=== PATIENT | male | born 1965 | race Caucasian/White ===

== ENCOUNTER 2018-04-17 05:28 | Inpatient (IN) | payer MEDICAID, OTHER ==
[~2018-04-17] VITALS: Ht 175.3 cm; Wt 68.2 kg
[~2018-04-17 05:28] MED LIST: COU5T PO; LOP25T PO; REM15T PO
[2018-04-17] MEDS ORDERED: morphine 4 MG/ML inj SYRINge IV ONE (06:00)
[2018-04-17] MEDS: K and/or MAG REPLACEMENT MC SCH (08:00)
[2018-04-17] MEDS ORDERED: HYDROcodone/acetaminophen 5mg/325mg tablet PO PRN (08:00)
[2018-04-17] MEDS ORDERED: bisacodyl 10mg suppository rectal RC PRN (08:00)
[2018-04-17] MEDS ORDERED: morphine 2 MG/ML inj. syringe IV PRN (08:00)
[2018-04-17] MEDS ORDERED: ondansetron/PF 4mg/2ml inj IV PRN (08:00)
[2018-04-17] MEDS ORDERED: magnesium 4gm in 100ml NS 100 ML IV PRN (08:00)
[2018-04-17] MEDS ORDERED: magnesium hydroxide 30ml (MOM) UD suspension PO PRN (08:00)
[2018-04-17] MEDS ORDERED: acetaminophen 325mg tablet PO PRN (08:00)
[2018-04-17] MEDS ORDERED: potassium Cl 20 mEq SR tablet PO PRN ×2 (08:00)
[2018-04-17] MEDS ORDERED: potassium Cl 40MEQ/NS 500ml 500 ML IV PRN ×2 (08:00)
[2018-04-17] MEDS ORDERED: magnesium Cl slow-release 64mg tablet PO PRN (08:00)
[2018-04-17] MEDS ORDERED: linezolid 600mg/300ml PREMIX 300 ML IV SCH (08:05)
[2018-04-17] MEDS: piperacillin/tazo 4.5gm/100ml 100 ML IV SCH ×2 (08:34→16:27)
[2018-04-17] MEDS: enoxaparin 40mg/0.4ml syringe SUBCUT SCH (08:38)
[2018-04-17] MEDS: docusate sod 100mg capsule PO SCH ×2 (08:38→20:00)
[2018-04-17] MEDS: normal saline 1000ml 1,000 ML IV SCH ×3 (08:44→20:52)
[2018-04-17 10:00] VITALS: BP 125/72
[2018-04-17] MEDS ORDERED: UNABLE TO OBTAIN (10:23)
[2018-04-17] MEDS: morphine 2 MG/ML inj. syringe IV PRN ×2 (12:04→16:42)
[2018-04-17] MEDS: albuterol 2.5 MG/3 ML nebule NEB PRN (14:29)
[2018-04-17 19:30] VITALS: BP 125/74
[2018-04-17] MEDS: linezolid 600mg tablet PO SCH (21:57)
[2018-04-17] MEDS: HYDROcodone/acetaminophen 10/325mg tab PO PRN (21:58)
[2018-04-17] MEDS: thiamine 100mg tablet PO SCH (21:58)
[2018-04-18] VITALS: BP 141/68
[2018-04-18] MEDS: piperacillin/tazo 4.5gm/100ml 100 ML IV SCH ×4 (00:33→23:34)
[2018-04-18 05:25] LABS: BASOPHILS % (AUTO) 0.5 % (0-1); EOSINOPHILS # (AUTO) 0.2 X10'3 (0-0.9); EOSINOPHILS % (AUTO) 1.8 % (0-6); HEMATOCRIT 31.5 % (42.0-52.0); HEMOGLOBIN 10.4 g/dl (14.0-17.9); LYMPHOCYTES # (AUTO) 1.5 X10'3 (1.1-4.8); LYMPHOCYTES % (AUTO) 18.2 % (21-51); MEAN CORPUSCULAR HEMOGLOBIN 29.6 PG (27.0-31.0); MEAN CORPUSCULAR HGB CONC 33.2 % (33.0-36.5); MEAN CORPUSCULAR VOLUME 89.3 FL (78-98); MONOCYTES # (AUTO) 1.3 X10'3 (0-0.9); MONOCYTES % (AUTO) 15.8 % (2-12); NEUTROPHILS # (AUTO) 5.2 X10'3 (1.8-7.7); NEUTROPHILS % (AUTO) 63.7 % (42-75); PLATELET COUNT 364 X10'3 (140-440); RED BLOOD COUNT 3.52 X10'6 (4.70-6.10); RED CELL DISTRIBUTION WIDTH 15.5 % (11.5-14.5); WHITE BLOOD COUNT 8.2 X10'3 (4.5-11.0)
[2018-04-18 05:43] LABS: ALANINE AMINOTRANSFERASE 12 U/L (12-78); ALBUMIN 2.4 G/DL (3.4-5.0); ALBUMIN/GLOBULIN RATIO 0.6 (1.1-1.5); ALKALINE PHOSPHATASE 94 IU/L (46-116); ANION GAP 7 (8-16); ASPARTATE AMINO TRANSFERASE 10 U/L (10-37); BILIRUBIN,TOTAL 0.3 MG/DL (0.1-1.0); BLOOD UREA NITROGEN 11 MG/DL (7-18); BUN/CREATININE RATIO 12.6 (5.4-32.0); CALCIUM 8.7 MG/DL (8.5-10.1); CHLORIDE 99 MMOL/L (99-107); CREATININE 0.87 MG/DL (0.60-1.10); GLUCOSE 102 MG/DL (70-104); MAGNESIUM 1.7 MG/DL (1.5-2.4); POTASSIUM 4.2 MMOL/L (3.5-5.1); SODIUM 133 MMOL/L (135-145); TOTAL PROTEIN 6.7 G/DL (6.4-8.2); eGFR > 90 ML/MIN
[2018-04-18 07:30] VITALS: BP 141/89
[2018-04-18] MEDS: docusate sod 100mg capsule PO SCH ×2 (08:00→20:07)
[2018-04-18] MEDS: K and/or MAG REPLACEMENT MC SCH (08:00)
[2018-04-18] MEDS: folic acid 1mg tablet PO SCH (08:32)
[2018-04-18] MEDS: normal saline 1000ml 1,000 ML IV SCH ×3 (08:32→20:07)
[2018-04-18] MEDS: linezolid 600mg tablet PO SCH ×2 (08:33→20:07)
[2018-04-18] MEDS: thiamine 100mg tablet PO SCH ×2 (08:33→20:07)
[2018-04-18] MEDS: enoxaparin 40mg/0.4ml syringe SUBCUT SCH (08:34)
[2018-04-18] MEDS: morphine 2 MG/ML inj. syringe IV PRN ×2 (09:50→15:58)
[2018-04-18 11:30] VITALS: BP 130/76
[2018-04-18 18:00] VITALS: BP 140/83
[2018-04-19] VITALS: BP 140/83
[2018-04-19 05:14] LABS: BASOPHILS # (AUTO) 0.1 X10'3 (0-0.2); BASOPHILS % (AUTO) 0.8 % (0-1); EOSINOPHILS # (AUTO) 0.2 X10'3 (0-0.9); EOSINOPHILS % (AUTO) 2.1 % (0-6); HEMATOCRIT 31.1 % (42.0-52.0); HEMOGLOBIN 10.3 g/dl (14.0-17.9); LYMPHOCYTES # (AUTO) 1.3 X10'3 (1.1-4.8); LYMPHOCYTES % (AUTO) 14.7 % (21-51); MEAN CORPUSCULAR HEMOGLOBIN 29.7 PG (27.0-31.0); MEAN CORPUSCULAR HGB CONC 33.2 % (33.0-36.5); MEAN CORPUSCULAR VOLUME 89.2 FL (78-98); MONOCYTES # (AUTO) 1.1 X10'3 (0-0.9); MONOCYTES % (AUTO) 12.9 % (2-12); NEUTROPHILS % (AUTO) 69.5 % (42-75); PLATELET COUNT 396 X10'3 (140-440); RED BLOOD COUNT 3.48 X10'6 (4.70-6.10); RED CELL DISTRIBUTION WIDTH 15.6 % (11.5-14.5); WHITE BLOOD COUNT 8.6 X10'3 (4.5-11.0)
[2018-04-19 05:24] LABS: ALANINE AMINOTRANSFERASE 11 U/L (12-78); ALBUMIN 2.4 G/DL (3.4-5.0); ALBUMIN/GLOBULIN RATIO 0.6 (1.1-1.5); ALKALINE PHOSPHATASE 94 IU/L (46-116); ANION GAP 11 (8-16); ASPARTATE AMINO TRANSFERASE 10 U/L (10-37); BILIRUBIN,TOTAL 0.2 MG/DL (0.1-1.0); BLOOD UREA NITROGEN 5 MG/DL (7-18); BUN/CREATININE RATIO 5.6 (5.4-32.0); CALCIUM 8.6 MG/DL (8.5-10.1); CHLORIDE 100 MMOL/L (99-107); CREATININE 0.89 MG/DL (0.60-1.10); GLUCOSE 96 MG/DL (70-104); MAGNESIUM 1.5 MG/DL (1.5-2.4); SODIUM 135 MMOL/L (135-145); TOTAL PROTEIN 6.6 G/DL (6.4-8.2); eGFR 90 ML/MIN
[2018-04-19] MEDS: normal saline 1000ml 1,000 ML IV SCH ×2 (06:33→22:20)
[2018-04-19 07:11] VITALS: BP 139/89
[2018-04-19] MEDS: K and/or MAG REPLACEMENT MC SCH (08:00)
[2018-04-19] MEDS: folic acid 1mg tablet PO SCH (08:45)
[2018-04-19] MEDS: thiamine 100mg tablet PO SCH ×2 (08:45→19:16)
[2018-04-19] MEDS: piperacillin/tazo 4.5gm/100ml 100 ML IV SCH ×3 (08:45→23:35)
[2018-04-19] MEDS: docusate sod 100mg capsule PO SCH ×2 (08:45→19:16)
[2018-04-19] MEDS: enoxaparin 40mg/0.4ml syringe SUBCUT SCH (08:46)
[2018-04-19 11:00] VITALS: BP 143/90
[2018-04-19] MEDS: HYDROcodone/acetaminophen 10/325mg tab PO PRN (14:36)
[2018-04-19 18:00] VITALS: BP 162/97
[2018-04-20] VITALS: BP 146/87
[2018-04-20 05:09] LABS: BASOPHILS # (AUTO) 0.1 X10'3 (0-0.2); BASOPHILS % (AUTO) 0.9 % (0-1); EOSINOPHILS # (AUTO) 0.2 X10'3 (0-0.9); EOSINOPHILS % (AUTO) 2.7 % (0-6); HEMATOCRIT 32.4 % (42.0-52.0); HEMOGLOBIN 10.8 g/dl (14.0-17.9); LYMPHOCYTES # (AUTO) 1.3 X10'3 (1.1-4.8); LYMPHOCYTES % (AUTO) 16.4 % (21-51); MEAN CORPUSCULAR HEMOGLOBIN 29.5 PG (27.0-31.0); MEAN CORPUSCULAR HGB CONC 33.2 % (33.0-36.5); MEAN CORPUSCULAR VOLUME 88.9 FL (78-98); MEAN PLATELET VOLUME 5.7 FL (7.4-10.4); MONOCYTES # (AUTO) 0.8 X10'3 (0-0.9); MONOCYTES % (AUTO) 9.5 % (2-12); NEUTROPHILS # (AUTO) 5.8 X10'3 (1.8-7.7); NEUTROPHILS % (AUTO) 70.5 % (42-75); PLATELET COUNT 471 X10'3 (140-440); RED BLOOD COUNT 3.65 X10'6 (4.70-6.10); RED CELL DISTRIBUTION WIDTH 15.1 % (11.5-14.5); WHITE BLOOD COUNT 8.2 X10'3 (4.5-11.0)
[2018-04-20 05:38] LABS: ALANINE AMINOTRANSFERASE 11 U/L (12-78); ALBUMIN 2.4 G/DL (3.4-5.0); ALBUMIN/GLOBULIN RATIO 0.6 (1.1-1.5); ALKALINE PHOSPHATASE 86 IU/L (46-116); ANION GAP 10 (8-16); ASPARTATE AMINO TRANSFERASE 9 U/L (10-37); BILIRUBIN,TOTAL 0.1 MG/DL (0.1-1.0); BLOOD UREA NITROGEN 5 MG/DL (7-18); BUN/CREATININE RATIO 5.4 (5.4-32.0); CALCIUM 8.8 MG/DL (8.5-10.1); CHLORIDE 103 MMOL/L (99-107); CREATININE 0.92 MG/DL (0.60-1.10); GLUCOSE 90 MG/DL (70-104); MAGNESIUM 1.7 MG/DL (1.5-2.4); POTASSIUM 3.9 MMOL/L (3.5-5.1); SODIUM 138 MMOL/L (135-145); TOTAL CARBON DIOXIDE 24.6 MMOL/L (24-32); TOTAL PROTEIN 6.7 G/DL (6.4-8.2); eGFR 87 ML/MIN
[2018-04-20 08:00] VITALS: BP 155/86
[2018-04-20] MEDS: K and/or MAG REPLACEMENT MC SCH (08:00)
[2018-04-20] MEDS: docusate sod 100mg capsule PO SCH ×2 (08:01→20:17)
[2018-04-20] MEDS: enoxaparin 40mg/0.4ml syringe SUBCUT SCH (08:01)
[2018-04-20] MEDS: thiamine 100mg tablet PO SCH ×2 (08:01→20:17)
[2018-04-20] MEDS: piperacillin/tazo 4.5gm/100ml 100 ML IV SCH ×3 (08:01→23:44)
[2018-04-20] MEDS: folic acid 1mg tablet PO SCH (08:01)
[2018-04-20] MEDS: mag hydrox/Alum hydrox/simeth 30ml oral suspension PO PRN ×2 (10:36→19:04)
[2018-04-20] MEDS: normal saline 1000ml 1,000 ML IV SCH (10:37)
[2018-04-20 11:08] VITALS: BP 132/80
[2018-04-20] MEDS: albuterol 2.5 MG/3 ML nebule NEB PRN (12:15)
[2018-04-20 19:00] VITALS: BP 152/87
[2018-04-20] MEDS: lactobacillus rhamnosus 10,000 MMU CELLS/CAPSULE PO SCH (20:17)
[2018-04-21] VITALS: BP 150/84
[2018-04-21 06:03] LABS: BASOPHILS # (AUTO) 0.1 X10'3 (0-0.2); BASOPHILS % (AUTO) 1.5 % (0-1); EOSINOPHILS # (AUTO) 0.1 X10'3 (0-0.9); EOSINOPHILS % (AUTO) 1.5 % (0-6); HEMATOCRIT 33.2 % (42.0-52.0); HEMOGLOBIN 11.1 g/dl (14.0-17.9); LYMPHOCYTES # (AUTO) 1.6 X10'3 (1.1-4.8); LYMPHOCYTES % (AUTO) 21.3 % (21-51); MEAN CORPUSCULAR HEMOGLOBIN 29.4 PG (27.0-31.0); MEAN CORPUSCULAR HGB CONC 33.3 % (33.0-36.5); MEAN CORPUSCULAR VOLUME 88.3 FL (78-98); MEAN PLATELET VOLUME 5.7 FL (7.4-10.4); MONOCYTES # (AUTO) 0.5 X10'3 (0-0.9); MONOCYTES % (AUTO) 7.4 % (2-12); NEUTROPHILS % (AUTO) 68.3 % (42-75); PLATELET COUNT 511 X10'3 (140-440); RED BLOOD COUNT 3.76 X10'6 (4.70-6.10); RED CELL DISTRIBUTION WIDTH 15.3 % (11.5-14.5); WHITE BLOOD COUNT 7.4 X10'3 (4.5-11.0)
[2018-04-21 07:24] VITALS: BP 136/84
[2018-04-21] MEDS: K and/or MAG REPLACEMENT MC SCH (07:49)
[2018-04-21] MEDS: lactobacillus rhamnosus 10,000 MMU CELLS/CAPSULE PO SCH ×2 (07:51→19:24)
[2018-04-21] MEDS: piperacillin/tazo 4.5gm/100ml 100 ML IV SCH ×3 (07:52→23:16)
[2018-04-21] MEDS: folic acid 1mg tablet PO SCH (07:52)
[2018-04-21] MEDS: thiamine 100mg tablet PO SCH ×2 (07:52→19:24)
[2018-04-21] MEDS: docusate sod 100mg capsule PO SCH ×2 (07:52→19:24)
[2018-04-21] MEDS: enoxaparin 40mg/0.4ml syringe SUBCUT SCH (07:52)
[2018-04-21] MEDS: mag hydrox/Alum hydrox/simeth 30ml oral suspension PO PRN ×3 (10:44→19:23)
[2018-04-21 12:00] VITALS: BP 142/92
[2018-04-21] MEDS: HYDROcodone/acetaminophen 10/325mg tab PO PRN ×2 (16:05→20:16)
[2018-04-21 18:00] VITALS: BP 148/97
[2018-04-22] VITALS: BP 142/80
[2018-04-22 05:29] LABS: BASOPHILS # (AUTO) 0.1 X10'3 (0-0.2); BASOPHILS % (AUTO) 0.9 % (0-1); EOSINOPHILS # (AUTO) 0.2 X10'3 (0-0.9); HEMATOCRIT 34.3 % (42.0-52.0); HEMOGLOBIN 11.4 g/dl (14.0-17.9); LYMPHOCYTES # (AUTO) 1.9 X10'3 (1.1-4.8); LYMPHOCYTES % (AUTO) 23.1 % (21-51); MEAN CORPUSCULAR HEMOGLOBIN 29.5 PG (27.0-31.0); MEAN CORPUSCULAR HGB CONC 33.1 % (33.0-36.5); MEAN CORPUSCULAR VOLUME 89.1 FL (78-98); MEAN PLATELET VOLUME 5.6 FL (7.4-10.4); MONOCYTES # (AUTO) 0.8 X10'3 (0-0.9); MONOCYTES % (AUTO) 9.3 % (2-12); NEUTROPHILS # (AUTO) 5.2 X10'3 (1.8-7.7); NEUTROPHILS % (AUTO) 63.7 % (42-75); PLATELET COUNT 521 X10'3 (140-440); RED BLOOD COUNT 3.85 X10'6 (4.70-6.10); RED CELL DISTRIBUTION WIDTH 15.3 % (11.5-14.5); WHITE BLOOD COUNT 8.1 X10'3 (4.5-11.0)
[2018-04-22] MEDS: K and/or MAG REPLACEMENT MC SCH (06:42)
[2018-04-22 07:02] VITALS: BP 147/91
[2018-04-22] MEDS: folic acid 1mg tablet PO SCH (07:21)
[2018-04-22] MEDS: thiamine 100mg tablet PO SCH ×2 (07:21→20:21)
[2018-04-22] MEDS: lactobacillus rhamnosus 10,000 MMU CELLS/CAPSULE PO SCH ×2 (07:21→20:22)
[2018-04-22] MEDS: docusate sod 100mg capsule PO SCH ×2 (07:21→20:21)
[2018-04-22] MEDS: enoxaparin 40mg/0.4ml syringe SUBCUT SCH ×2 (07:22→07:25)
[2018-04-22] MEDS: piperacillin/tazo 4.5gm/100ml 100 ML IV SCH ×3 (07:22→23:56)
[2018-04-22 11:43] VITALS: BP 142/91
[2018-04-22 19:00] VITALS: BP 128/77
[2018-04-22] MEDS: mag hydrox/Alum hydrox/simeth 30ml oral suspension PO PRN (20:21)
[2018-04-22 23:00] VITALS: BP 171/105
[2018-04-23] VITALS (9 sets, daily range): BP systolic 127–159; BP diastolic 80–104
[2018-04-23 06:14] LABS: PARTIAL THROMBOPLASTIN TIME 29 SECONDS (22-32); PROTHROMBIN TIME 10.3 SECONDS (9.0-12.0)
[2018-04-23 06:15] LABS: BASOPHILS # (AUTO) 0.1 X10'3 (0-0.2); BASOPHILS % (AUTO) 0.7 % (0-1); EOSINOPHILS # (AUTO) 0.4 X10'3 (0-0.9); EOSINOPHILS % (AUTO) 3.1 % (0-6); HEMATOCRIT 34.9 % (42.0-52.0); HEMOGLOBIN 11.7 g/dl (14.0-17.9); LYMPHOCYTES # (AUTO) 1.7 X10'3 (1.1-4.8); LYMPHOCYTES % (AUTO) 14.7 % (21-51); MEAN CORPUSCULAR HEMOGLOBIN 29.6 PG (27.0-31.0); MEAN CORPUSCULAR HGB CONC 33.4 % (33.0-36.5); MEAN CORPUSCULAR VOLUME 88.6 FL (78-98); MEAN PLATELET VOLUME 5.5 FL (7.4-10.4); MONOCYTES # (AUTO) 0.8 X10'3 (0-0.9); MONOCYTES % (AUTO) 7.3 % (2-12); NEUTROPHILS # (AUTO) 8.5 X10'3 (1.8-7.7); NEUTROPHILS % (AUTO) 74.2 % (42-75); PLATELET COUNT 586 X10'3 (140-440); RED BLOOD COUNT 3.94 X10'6 (4.70-6.10); RED CELL DISTRIBUTION WIDTH 15.2 % (11.5-14.5); WHITE BLOOD COUNT 11.5 X10'3 (4.5-11.0)
[2018-04-23 06:23] LABS: ALBUMIN 2.9 G/DL (3.4-5.0); ANION GAP 12 (8-16); BLOOD UREA NITROGEN 14 MG/DL (7-18); BUN/CREATININE RATIO 13.1 (5.4-32.0); CALCIUM 9.3 MG/DL (8.5-10.1); CHLORIDE 100 MMOL/L (99-107); CREATININE 1.07 MG/DL (0.60-1.10); GLUCOSE 83 MG/DL (70-104); MAGNESIUM 1.9 MG/DL (1.5-2.4); POTASSIUM 4.1 MMOL/L (3.5-5.1); SODIUM 136 MMOL/L (135-145); TOTAL CARBON DIOXIDE 24.1 MMOL/L (24-32); eGFR 73 ML/MIN
[2018-04-23] MEDS: piperacillin/tazo 4.5gm/100ml 100 ML IV SCH ×3 (07:07→23:32)
[2018-04-23] MEDS: docusate sod 100mg capsule PO SCH ×2 (07:08→20:13)
[2018-04-23] MEDS: thiamine 100mg tablet PO SCH ×2 (07:08→20:13)
[2018-04-23] MEDS: folic acid 1mg tablet PO SCH (07:08)
[2018-04-23] MEDS: K and/or MAG REPLACEMENT MC SCH (07:08)
[2018-04-23] MEDS: lactobacillus rhamnosus 10,000 MMU CELLS/CAPSULE PO SCH ×2 (07:08→20:13)
[2018-04-23] MEDS: mag hydrox/Alum hydrox/simeth 30ml oral suspension PO PRN (18:34)
[2018-04-24 06:18] LABS: HEMATOCRIT 36.1 % (42.0-52.0); HEMOGLOBIN 11.9 g/dl (14.0-17.9); MEAN CORPUSCULAR HEMOGLOBIN 29.1 PG (27.0-31.0); MEAN CORPUSCULAR HGB CONC 32.8 % (33.0-36.5); MEAN CORPUSCULAR VOLUME 88.7 FL (78-98); MEAN PLATELET VOLUME 5.7 FL (7.4-10.4); PLATELET COUNT 577 X10'3 (140-440); RED BLOOD COUNT 4.07 X10'6 (4.70-6.10); RED CELL DISTRIBUTION WIDTH 15.7 % (11.5-14.5); WHITE BLOOD COUNT 13.6 X10'3 (4.5-11.0)
[2018-04-24 06:22] LABS: TOTAL CELLS COUNTED 100
[2018-04-24 06:23] LABS: ANISOCYTOSIS 1+; PLATELET ESTIMATE INCREASED
[2018-04-24 07:04] LABS: ALBUMIN 2.9 G/DL (3.4-5.0); ANION GAP 11 (8-16); BLOOD UREA NITROGEN 13 MG/DL (7-18); CALCIUM 9.1 MG/DL (8.5-10.1); CHLORIDE 99 MMOL/L (99-107); GLUCOSE 88 MG/DL (70-104); MAGNESIUM 1.9 MG/DL (1.5-2.4); POTASSIUM 4.1 MMOL/L (3.5-5.1); SODIUM 134 MMOL/L (135-145); TOTAL CARBON DIOXIDE 23.8 MMOL/L (24-32); eGFR 79 ML/MIN
[2018-04-24 07:12] VITALS: BP 137/94
[2018-04-24] MEDS: K and/or MAG REPLACEMENT MC SCH (08:00)
[2018-04-24] MEDS: piperacillin/tazo 4.5gm/100ml 100 ML IV SCH ×3 (09:37→23:40)
[2018-04-24] MEDS: lactobacillus rhamnosus 10,000 MMU CELLS/CAPSULE PO SCH ×2 (09:37→19:25)
[2018-04-24] MEDS: folic acid 1mg tablet PO SCH (09:38)
[2018-04-24] MEDS: docusate sod 100mg capsule PO SCH ×2 (09:38→19:26)
[2018-04-24] MEDS: thiamine 100mg tablet PO SCH ×2 (09:38→19:25)
[2018-04-24 11:00] VITALS: BP 114/83
[2018-04-24] MEDS: mag hydrox/Alum hydrox/simeth 30ml oral suspension PO PRN ×2 (14:05→19:24)
[2018-04-24 20:03] VITALS: BP 153/88
[2018-04-24 23:45] VITALS: BP 165/107
[2018-04-25 05:54] LABS: ANION GAP 11 (8-16); BASOPHILS # (AUTO) 0.1 X10'3 (0-0.2); BASOPHILS % (AUTO) 0.8 % (0-1); BLOOD UREA NITROGEN 16 MG/DL (7-18); BUN/CREATININE RATIO 16.3 (5.4-32.0); CALCIUM 9.2 MG/DL (8.5-10.1); CHLORIDE 101 MMOL/L (99-107); CREATININE 0.98 MG/DL (0.60-1.10); EOSINOPHILS # (AUTO) 0.2 X10'3 (0-0.9); GLUCOSE 88 MG/DL (70-104); HEMATOCRIT 36.1 % (42.0-52.0); HEMOGLOBIN 11.9 g/dl (14.0-17.9); LYMPHOCYTES # (AUTO) 1.6 X10'3 (1.1-4.8); LYMPHOCYTES % (AUTO) 14.9 % (21-51); MEAN CORPUSCULAR HEMOGLOBIN 29.2 PG (27.0-31.0); MEAN CORPUSCULAR VOLUME 88.5 FL (78-98); MEAN PLATELET VOLUME 5.9 FL (7.4-10.4); MONOCYTES # (AUTO) 0.9 X10'3 (0-0.9); MONOCYTES % (AUTO) 7.9 % (2-12); NEUTROPHILS % (AUTO) 74.4 % (42-75); PLATELET COUNT 592 X10'3 (140-440); RED BLOOD COUNT 4.08 X10'6 (4.70-6.10); RED CELL DISTRIBUTION WIDTH 15.2 % (11.5-14.5); SODIUM 136 MMOL/L (135-145); TOTAL CARBON DIOXIDE 24.4 MMOL/L (24-32); WHITE BLOOD COUNT 10.8 X10'3 (4.5-11.0); eGFR 81 ML/MIN
[2018-04-25 08:00] VITALS: BP 127/80
[2018-04-25] MEDS: K and/or MAG REPLACEMENT MC SCH (08:00)
[2018-04-25] MEDS ORDERED: sulfamethoxazole/trimethoprim DS (800/160mg) tablet PO SCH (08:25)
[2018-04-25] MEDS ORDERED: linezolid 600mg tablet PO SCH (08:25)
[2018-04-25] MEDS: thiamine 100mg tablet PO SCH (08:56)
[2018-04-25] MEDS: lactobacillus rhamnosus 10,000 MMU CELLS/CAPSULE PO SCH (08:56)
[2018-04-25] MEDS: docusate sod 100mg capsule PO SCH (08:57)
[2018-04-25] MEDS: folic acid 1mg tablet PO SCH (08:57)
[2018-04-25 11:00] VITALS: BP 154/99
[2018-04-25] MEDS ORDERED: MULT1TAB74 PO (15:18)
[2018-04-25] MEDS ORDERED: LINE600T32 PO (15:18)
[2018-04-25] MEDS ORDERED: BACDS PO (15:18)
[2018-04-25] MEDS ORDERED: LACT1CAP26 PO (15:18)
== END 2018-04-25 16:05 | DRG 720 ==
LOC: ER 05:28 → ED HOLD 07:56 → EEVIPCON 07:56 → SUR 3N 10:00
PROVIDERS: ADMIT Internal Medicine; ATTEND Hospitalist
DX: A41.9 Sepsis, unspecified organism (principal); J85.0 Gangrene and necrosis of lung; J85.1 Abscess of lung with pneumonia; J15.7 Pneumonia due to Mycoplasma pneumoniae; I10 Essential (primary) hypertension; E87.1 Hypo-osmolality and hyponatremia; F12.90 Cannabis use, unspecified, uncomplicated; Z79.899 Other long term (current) drug therapy; Z86.718 Personal history of other venous thrombosis and embolism; Z87.891 Personal history of nicotine dependence
CPT/HCPCS: 36415; 71046; 80048; 80053; 83735; 84145; 85025; 85610; 85651; 85730; 86140; 87040; 87070; 93005; 94640; 94760; 96374; 99285; G0378; J1650; J2020; J2270; J2405; J2543; J7030